=== PATIENT | female | born 1980 | race Two or more races ===

== ENCOUNTER → 2025-03-15 | Outpatient (CLI) | payer OTHER, SELFPAY ==
--- NOTE | 2025-03-15 | XR_ITS ---
Examination: Nasal bones 3 views TECHNIQUE: Yadira, right and left nasal bones 3 views Date and time: 07/15/2024 1229 hours INDICATIONS: Injury to the face one week ago, nose pain. FINDINGS: (Appear intact. No blood in the maxillary antra. No nasal bone fracture depicted IMPRESSION: No nasal bone fracture depicted
== END | disposition home or self-care (01) ==
PROVIDERS: PCP Nurse Practitioner Family; Referring Provider Nurse Practitioner Family; Visit Provider Nurse Practitioner Family
DX: S09.92XA Unspecified injury of nose, initial encounter (principal); X58.XXXA Exposure to other specified factors, initial encounter
CPT/HCPCS: 70160

== ENCOUNTER → 2025-04-09 | Outpatient (CLI) | payer OTHER, MEDICAID, SELFPAY ==
--- NOTE | 2025-04-09 08:45 | XR_ITS ---
Examination: Breast ultrasound complete, bilateral Date and time of exam: March 13, 2025, 0913 hours INDICATIONS: Bilateral breast cysts on ultrasound 03/30/2024, bilateral breast nodules on mammogram January 24, 2024 Technique: Real-time grayscale ultrasonographic imaging bilateral breasts, including all 4 quadrants as well as nipple retroareolar and axillary regions. Findings: Sonographic images right breast Multiple benign cysts, the largest in the retroareolar region 13 x 14 mm No solid nodules Sonographic images left breast Multiple benign cysts, the largest in the retroareolar region 16 x 15 mm No solid nodules IMPRESSION: BI-RADS Category 2: Benign findings
--- NOTE | 2025-04-09 09:45 | XR_ITS ---
Examination: Screening digital mammography, bilateral Computer aided detection 3-D breast Tomosynthesis, bilateral Date and time of exam: April 09, 2025, 0946 hours, compared to mammograms dated to September 20, 2022 Indication: Screening Technique: Nonmagnified MLO, CC views of the breasts to been obtained, reconstructed from 3-D Tomosynthesis images. R2 computer aided detection program utilized for evaluation of suspicious masses and/or abnormal calcifications. 3-D Tomosynthesis images obtained. Findings: The breasts are heterogeneously dense, which may obscure small masses 6 mm oval circumscribed nodule retroareolar region right breast Impression: BI-RADS Category 0: Incomplete: Need additional imaging evaluation Recommend follow-up spot tomographic views of 16 mm circumscribed nodule retroareolar region right breast as well as right breast sonography to complete the workup.
== END | disposition home or self-care (01) ==
PROVIDERS: PCP Internal Medicine; Referring Provider Specialist; Visit Provider Specialist
DX: Z12.31 Encounter for screening mammogram for malignant neoplasm of breast (principal); N63.41 Unspecified lump in right breast, subareolar; R92.8 Other abnormal and inconclusive findings on diagnostic imaging of breast
CPT/HCPCS: 76641; 77063; 77067

== ENCOUNTER → 2025-04-11 | Outpatient (CLI) | payer OTHER, MEDICAID, SELFPAY ==
--- NOTE | 2025-04-11 | XR_ITS ---
Examination: Diagnostic digital mammography, unilateral, right Computer aided detection 3-D breast Tomosynthesis, unilateral Date and time of exam: April 11 2025, 1056 hours INDICATIONS: Mammogram 04/09/2025 6 mm nodule retroareolar region right breast Technique: Nonmagnified MLO, CC views of the right breast have been obtained, reconstructed from 3-D Tomosynthesis images. R2 computer aided detection program utilized for evaluation of suspicious masses and/or abnormal calcifications. 3-D Tomosynthesis images obtained. Findings: The breasts are heterogeneously dense, which may obscure small masses Retroareolar nodule right breast 10 mm likely corresponding to cyst described on ultrasound examination 04/09/2025 Impression: BI-RADS category 2: Benign findings Recommend yearly follow-up mammography
== END | disposition home or self-care (01) ==
PROVIDERS: PCP Internal Medicine; Referring Provider Specialist; Visit Provider Specialist
DX: R92.321 Mammographic fibroglandular density, right breast (principal)
CPT/HCPCS: 77061; 77065; G0279